=== PATIENT | female | born 1995 | race Caucasian/White ===

== ENCOUNTER 2019-02-18 09:44 | Inpatient (IN) | payer OTHER ==
[2019-02-18] VITALS (14 sets, daily range): BP systolic 112–133; BP diastolic 58–79; PULSE 88–107; RESP 12–21; Ht 157.5 cm; Wt 52.7 kg
[~2019-02-18] VITALS: Ht 157.5 cm; Wt 52.7 kg
[~2019-02-18 09:44] MED LIST: CEFAZOLIN 1 GM INJ ONE; DESFLURANE 15 MIN ONE; LIDOCAINE 2% (SDV) 5 ML INJ ONE
[2019-02-18] MEDS ORDERED: HYDROmorphONE 0.5 MG/0.5 ML SYG IV STA (10:58)
[2019-02-18] MEDS ORDERED: ONDANSETRON 4 MG INJ IV STA ×3 (11:02→14:29)
[2019-02-18] MEDS ORDERED: ONDANSETRON 4 MG INJ ONE ×2 (11:03→17:37)
[2019-02-18] MEDS ORDERED: SOD CHLORIDE 0.9% 1,000 ML IV ONE (11:30)
[2019-02-18] MEDS ORDERED: SOD CHLORIDE 0.9% 1,000 ML IV STA (12:16)
[2019-02-18] MEDS ORDERED: PIPER-TAZO 3.375 GM IV (PMX) 100 ML IVPB STA (12:38)
[2019-02-18] MEDS ORDERED: HYDROmorphONE 1 MG/ML SYG IV STA ×2 (12:38→14:29)
[2019-02-18] MEDS ORDERED: SUMA100T4 PO (13:43)
[2019-02-18] MEDS ORDERED: ACETAMINOPHEN 325 MG TAB PO PRN (14:30)
[2019-02-18] MEDS ORDERED: ONDANSETRON 4 MG INJ IV PRN ×2 (14:30→17:30)
[2019-02-18] MEDS ORDERED: MAGNESIUM HYDROXIDE 30ML CUP PO PRN (14:30)
[2019-02-18] MEDS ORDERED: ACETAMINOPHEN 650 MG SUPP PR PRN (14:30)
[2019-02-18] MEDS ORDERED: NA PHOSPHATE/BIPHOS 133 ML ENEMA PR PRN (14:30)
[2019-02-18] MEDS ORDERED: morphine 2 MG INJ IV PRN (14:30)
[2019-02-18] MEDS ORDERED: OXYCODONE/ACETAMINOPHEN (5/325) TAB PO PRN (14:30)
[2019-02-18] MEDS ORDERED: DOCUSATE SODIUM 100 MG CAP PO PRN (14:30)
[2019-02-18] MEDS ORDERED: BISACODYL 10 MG SUPP PR PRN (14:30)
[2019-02-18] MEDS ORDERED: NACL 0.9% 3 ML SYG IV SCH (14:30)
[2019-02-18] MEDS ORDERED: ZOLPIDEM 5 MG TAB PO PRN (14:30)
--- NOTE | 2019-02-18 15:07 | CONS ---
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 On February 14, she was on a hike. A large [place]any[place] tree fell over onto her left hand, crushing her left index finger between the tree and possibly a rock. She also sustained a laceration in the palmar aspect of her hand. She was able to hike out to the car and was taken by personal vehicle to a local hospital in [facility]. Dr. Rizvi treated her during her hospital stay. He took her for irrigation debridement on February 14. She was told that there was extensive damage to the index finger in addition to soft tissue injury of the palm involving her middle and ring finger. He took her back to the operating room on February 16 for repeat I&D and external fixator placement. She has been on IV antibiotics. She flew back from [facility] last night to [place]. She presents the ER today due to severe pain in the left hand. She also states that the finger has become more discolored since yesterday. Patient was scheduled to see me in my office for initial consultation on February 20. She has been in severe pain since being in the emergency room. She has been receiving IV Dilaudid. She denies fevers or fevers or chills. She denies any numbness or tingling. She still has some sensation in the index finger and is able to wiggle the tip of the index finger. She denies any numbness or tingling in the long, ring, small finger, or thumb. Constitutional: no complaints Eyes: no complaints ENT: no complaints Respiratory: no complaints Cardiovascular: no complaints Gastrointestinal: no complaints Genitourinary: no complaints Musculoskeletal: other Skin: other Neurologic: no complaints Endocrine: no complaints Lymphatic: no complaints Psychological: no complaints Immunologic: no complaints Past Medical History Home Meds Reported Medications Sumatriptan Succinate* (Sumatriptan Succinate*) 100 Mg Tablet, 100 MG PO DAILY PRN for MIGRAINE HEADACHE, TAB May repeat after 2 hours if needed; MAX 200 mg/24 hours 02/18/19 Medications Current Medications Sodium Chloride 1,000 ml @ 100 mls/hr Q10H IV ; Start 02/18/19 at 14:20 IV Flush (NS 3 ml) 3 ml PER PROTOCOL IV ; Start 02/18/19 at 14:30 Ondansetron HCl (Zofran Inj) 4 mg Q6H PRN IV NAUSEA/VOMITING; Start 02/18/19 at 14:30 Acetaminophen (Tylenol Tab) 650 mg Q6H PRN PO .PAIN 1-3 OR TEMP; Start 02/18/19 at 14:30 Acetaminophen (Tylenol Supp) 650 mg Q6H PRN [place] .PAIN 1-3 OR TEMP; Start 02/18/19 at 14:30 Oxycodone/ Acetaminophen (Percocet (5/ 325)) 1 tab Q6H PRN PO .MOD PAIN 4-6; Start 02/18/19 at 14:30 Morphine Sulfate (morphine) 2 mg Q4H PRN IV .SEVERE PAIN 7-10; Start 02/18/19 at 14:30 Docusate Sodium (Colace) 100 mg Q12H PRN PO .CONSTIPATION; Start 02/18/19 at 14:30 Magnesium Hydroxide (Milk Of Mag) 30 ml DAILY PRN PO .CONSTIPATION; Start 02/18/19 at 14:30 Bisacodyl (Dulcolax Supp) 10 mg DAILY PRN OK .CONSTIPATION; Start 02/18/19 at 14:30 Sodium Biphosphate/ Sodium Phosphate (Fleet Enema) 133 ml DAILY PRN OK .CONSTIPATION; Start 02/18/19 at 14:30 Zolpidem Tartrate (Ambien) 5 mg QHS PRN PO .INSOMNIA; Start 02/18/19 at 14:30 Famotidine (Pepcid Iv) 20 mg Q12 IV ; Start 02/18/19 at 21:00 Allergies: Coded Allergies: No Known Allergy (Unverified , 02/18/19) Social History Smoking Status: Never smoker Exam/Review of Systems Exam Vitals Vital Signs Date Temp Pulse Resp B/P (MAP) Pulse Ox O2 O2 Flow FiO2 Time Delivery Rate 02/18/19 83 18 122/74 98 Room Air 13:13 (90) 02/18/19 98.3 09:48 Results Result Diagram: 02/18/19 1104 02/18/19 1104 Results 24hrs Laboratory Tests Test 02/18/19 11:04 02/18/19 11:07 White Blood Count 9.7 Red Blood Count 4.55 Hemoglobin 13.7 Hematocrit 41.6 Mean Corpuscular Volume 91.4 Mean Corpuscular Hemoglobin 30.1 Mean Corpuscular Hemoglobin Concent 32.9 Red Cell Distribution Width 11.8 Platelet Count 324 Mean Platelet Volume 9.2 Immature Granulocytes % 0.400 Neutrophils % 63.0 Lymphocytes % 24.3 Monocytes % 10.3 Eosinophils % 1.5 Basophils % 0.5 Nucleated Red Blood Cells % 0.0 Immature Granulocytes # 0.040 H Neutrophils # 6.1 Lymphocytes # 2.4 Monocytes # 1.0 H Eosinophils # 0.2 Basophils # 0.1 Nucleated Red Blood Cells # 0.0 Prothrombin Time 11.8 L Prothrombin Time Ratio 0.9 INR International Normalized Ratio 0.86 Activated Partial Thromboplast Time 29.1 Sodium Level 140 Potassium Level 3.7 Chloride Level 100 Carbon Dioxide Level 32 H Anion Gap 8 Blood Urea Nitrogen 10 Creatinine 0.67 Est Glomerular Filtrat Rate mL/min > 60 Glucose Level 95 Calcium Level 9.5 Total Bilirubin 0.6 Direct Bilirubin 0.00 Indirect Bilirubin 0.6 Aspartate Amino Transf (AST/SGOT) 19 Alanine Aminotransferase (ALT/SGPT) 9 L Alkaline Phosphatase 40 L Total Protein 7.7 Albumin 4.1 Globulin 3.60 H Albumin/Globulin Ratio 1.13 Serum HCG, Qualitative NEGATIVE POC Beta HCG, Qualitative NEGATIVE Medications Medication Current Medications Sodium Chloride 1,000 ml @ 100 mls/hr Q10H IV ; Start 02/18/19 at 14:20 IV Flush (NS 3 ml) 3 ml PER PROTOCOL IV ; Start 02/18/19 at 14:30 Ondansetron HCl (Zofran Inj) 4 mg Q6H PRN IV NAUSEA/VOMITING; Start 02/18/19 at 14:30 Acetaminophen (Tylenol Tab) 650 mg Q6H PRN PO .PAIN 1-3 OR TEMP; Start 02/18/19 at 14:30 Acetaminophen (Tylenol Supp) 650 mg Q6H PRN OK .PAIN 1-3 OR TEMP; Start 02/18/19 at 14:30 Oxycodone/ Acetaminophen (Percocet (5/ 325)) 1 tab Q6H PRN PO .MOD PAIN 4-6; Start 02/18/19 at 14:30 Morphine Sulfate (morphine) 2 mg Q4H PRN IV .SEVERE PAIN 7-10; Start 02/18/19 at 14:30 Docusate Sodium (Colace) 100 mg Q12H PRN PO .CONSTIPATION; Start 02/18/19 at 14:30 Magnesium Hydroxide (Milk Of Mag) 30 ml DAILY PRN PO .CONSTIPATION; Start 02/18/19 at 14:30 Bisacodyl (Dulcolax Supp) 10 mg DAILY PRN OK .CONSTIPATION; Start 02/18/19 at 14:30 Sodium Biphosphate/ Sodium Phosphate (Fleet Enema) 133 ml DAILY PRN OK .CONSTIPATION; Start 02/18/19 at 14:30 Zolpidem Tartrate (Ambien) 5 mg QHS PRN PO .INSOMNIA; Start 02/18/19 at 14:30 Famotidine (Pepcid Iv) 20 mg Q12 IV ; Start 02/18/19 at 21:00 SOL KELSEY MD Feb 18, 2019 15:07
--- NOTE | 2019-02-18 15:49 | HP ---
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 On February 14, she was on a hike. A large [place] tree fell over onto her left hand, crushing her left index finger between the tree and possibly a rock. She also sustained a laceration in the palmar aspect of her hand. She was able to hike out to the car and was taken by personal vehicle to a local hospital in [facility]. Dr. Rizvi treated her during her hospital stay. He took her for irrigation debridement on February 14. She was told that there was extensive damage to the index finger in addition to soft tissue injury of the palm involving her middle and ring finger. He took her back to the operating room on , February 16 for repeat I&D and external fixator placement. She has been on IV antibiotics. She flew back from [facility] last night to [place]. She presents the ER today due to severe pain in the left hand. She also states that the finger has become more discolored since yesterday. Patient was scheduled to see me in my office for initial consu ltation on Wednesday, February 20. She has been in severe pain since being in the emergency room. She has been receiving IV Dilaudid. She denies fevers or fevers or chills. She denies any numbness or tingling. She still has some sensation in the index finger and is able to wiggle the tip of the index finger. She denies any numbness or tingling in the long, ring, small finger, or thumb. -Incomplete data. Patient in OR ER: vss; test negative Past medical history Left hand crush injury Past surgical history Left index finger external fixation in [facility] last week Social history no active tobacco or alcohol; Family history There is no fh of early cad, cancer, stroke that I am aware of Physical exam No pallor Regular Clear Benign No peripheral edema; left hand pictures noted Assessment plan 1. Left index finger gangrene, mod stable. unfortunately, for amputation later today Low perioperative risk may proceed forward from medical standpoint. 2. Left hand crush injury continue supportive care, watch for rhabdo. Outpatient wound care, OT at some point 3. Incomplete data Result Diagram: 02/18/19 1104 02/18/19 1104 Results 24hrs Laboratory Tests Test 02/18/19 11:04 02/18/19 11:07 White Blood Count 9.7 Red Blood Count 4.55 Hemoglobin 13.7 Hematocrit 41.6 Mean Corpuscular Volume 91.4 Mean Corpuscular Hemoglobin 30.1 Mean Corpuscular Hemoglobin Concent 32.9 Red Cell Distribution Width 11.8 Platelet Count 324 Mean Platelet Volume 9.2 Immature Granulocytes % 0.400 Neutrophils % 63.0 Lymphocytes % 24.3 Monocytes % 10.3 Eosinophils % 1.5 Basophils % 0.5 Nucleated Red Blood Cells % 0.0 Immature Granulocytes # 0.040 H Neutrophils # 6.1 Lymphocytes # 2.4 Monocytes # 1.0 H Eosinophils # 0.2 Basophils # 0.1 Nucleated Red Blood Cells # 0.0 Prothrombin Time 11.8 L Prothrombin Time Ratio 0.9 INR International Normalized Ratio 0.86 Activated Partial Thromboplast Time 29.1 Sodium Level 140 Potassium Level 3.7 Chloride Level 100 Carbon Dioxide Level 32 H Anion Gap 8 Blood Urea Nitrogen 10 Creatinine 0.67 Est Glomerular Filtrat Rate mL/min > 60 Glucose Level 95 Calcium Level 9.5 Total Bilirubin 0.6 Direct Bilirubin 0.00 Indirect Bilirubin 0.6 Aspartate Amino Transf (AST/SGOT) 19 Alanine Aminotransferase (ALT/SGPT) 9 L Alkaline Phosphatase 40 L Total Protein 7.7 Albumin 4.1 Globulin 3.60 H Albumin/Globulin Ratio 1.13 Serum HCG, Qualitative NEGATIVE POC Beta HCG, Qualitative NEGATIVE HPI/ROS Admit Date/Time Admit Date/Time PMH/Family/Social Past Medical History Medications Current Medications Sodium Chloride 1,000 ml @ 100 mls/hr Q10H IV ; Start 02/18/19 at 14:20 IV Flush (NS 3 ml) 3 ml PER PROTOCOL IV ; Start 02/18/19 at 14:30 Ondansetron HCl (Zofran Inj) 4 mg Q6H PRN IV NAUSEA/VOMITING; Start 02/18/19 at 14:30 Acetaminophen (Tylenol Tab) 650 mg Q6H PRN PO .PAIN 1-3 OR TEMP; Start 02/18/19 at 14:30 Acetaminophen (Tylenol Supp) 650 mg Q6H PRN [place] .PAIN 1-3 OR TEMP; Start 02/18/19 at 14:30 Oxycodone/ Acetaminophen (Percocet (5/ 325)) 1 tab Q6H PRN PO .MOD PAIN 4-6; Start 02/18/19 at 14:30 Morphine Sulfate (morphine) 2 mg Q4H PRN IV .SEVERE PAIN 7-10; Start 02/18/19 at 14:30 Docusate Sodium (Colace) 100 mg Q12H PRN PO .CONSTIPATION; Start 02/18/19 at 14:30 Magnesium Hydroxide (Milk Of Mag) 30 ml DAILY PRN PO .CONSTIPATION; Start 02/18/19 at 14:30 Bisacodyl (Dulcolax Supp) 10 mg DAILY PRN HI .CONSTIPATION; Start 02/18/19 at 14:30 Sodium Biphosphate/ Sodium Phosphate (Fleet Enema) 133 ml DAILY PRN HI .CONSTIPATION; Start 02/18/19 at 14:30 Zolpidem Tartrate (Ambien) 5 mg QHS PRN PO .INSOMNIA; Start 02/18/19 at 14:30 Famotidine (Pepcid Iv) 20 mg Q12 IV ; Start 02/18/19 at 21:00 Coded Allergies: No Known Allergy (Unverified , 02/18/19) Social History Smoking Status: Never smoker Exam/Review of Systems Vital Signs Vitals Vital Signs Date Temp Pulse Resp B/P (MAP) Pulse Ox O2 O2 Flow FiO2 Time Delivery Rate 02/18/19 87 16 117/69 98 Room Air 15:10 (85) 02/18/19 98.3 09:48 CATHY OWEN MD Feb 18, 2019 15:49
--- NOTE | 2019-02-18 17:04 | PREAC ---
Date/Time of Note Date/Time of Note DATE: 02/18/19 TIME: 17:03 Anesthesia Eval and Record Evaluation Time Pre-Procedure Interview DATE: 02/18/19 TIME: 17:03 Age 24 Sex female NPO: 8 hrs Preoperative diagnosis ischemic finger Planned procedure amputation of index finger Past Medical History Past Medical History: None Surgery & Anesthesia Issues No known issue Meds Anticoagulation: No Beta Sandi within 24 hr: No Reason Beta Sandi not given: Pt. not on B-Sandi Reported Medications Sumatriptan Succinate* (Sumatriptan Succinate*) 100 Mg Tablet, 100 MG PO DAILY PRN for MIGRAINE HEADACHE, TAB May repeat after 2 hours if needed; MAX 200 mg/24 hours 02/18/19 Current Medications Sodium Chloride 1,000 ml @ 100 mls/hr Q10H IV ; Start 02/18/19 at 14:20 IV Flush (NS 3 ml) 3 ml PER PROTOCOL IV ; Start 02/18/19 at 14:30 Ondansetron HCl (Zofran Inj) 4 mg Q6H PRN IV NAUSEA/VOMITING; Start 02/18/19 at 14:30 Acetaminophen (Tylenol Tab) 650 mg Q6H PRN PO .PAIN 1-3 OR TEMP; Start 02/18/19 at 14:30 Acetaminophen (Tylenol Supp) 650 mg Q6H PRN [place] .PAIN 1-3 OR TEMP; Start 02/18/19 at 14:30 Oxycodone/ Acetaminophen (Percocet (5/ 325)) 1 tab Q6H PRN PO .MOD PAIN 4-6; Start 02/18/19 at 14:30 Morphine Sulfate (morphine) 2 mg Q4H PRN IV .SEVERE PAIN 7-10; Start 02/18/19 at 14:30 Docusate Sodium (Colace) 100 mg Q12H PRN PO .CONSTIPATION; Start 02/18/19 at 14:30 Magnesium Hydroxide (Milk Of Mag) 30 ml DAILY PRN PO .CONSTIPATION; Start 02/18/19 at 14:30 Bisacodyl (Dulcolax Supp) 10 mg DAILY PRN NE .CONSTIPATION; Start 02/18/19 at 14:30 Sodium Biphosphate/ Sodium Phosphate (Fleet Enema) 133 ml DAILY PRN NE .CONSTIPATION; Start 02/18/19 at 14:30 Zolpidem Tartrate (Ambien) 5 mg QHS PRN PO .INSOMNIA; Start 02/18/19 at 14:30 Famotidine (Pepcid Iv) 20 mg Q12 IV ; Start 02/18/19 at 21:00 Meds reviewed: Yes Allergies Coded Allergies: No Known Allergy (Unverified , 02/18/19) Allergies Reviewed: Yes Labs/Studies Labs Reviewed: Reviewed by anesthesiologist Result Diagram: 02/18/19 1104 02/18/19 1104 Laboratory Tests 02/18/19 11:04 Blood Bank Test 02/18/19 15:44 Antibody Screen NEGATIVE Blood Type A POSITIVE test: Negative Pre-procedure Exam Last vitals Vital Signs Date Temp Pulse Resp B/P (MAP) Pulse Ox O2 O2 Flow FiO2 Time Delivery Rate 02/18/19 80 16 120/69 98 Room Air 15:50 (86) 02/18/19 98.3 09:48 Airway: Adequate mouth opening, Adequate thyromental dist Mallampati: Mallampati IV Teeth: Normal Lung: Normal Heart: Normal ASA Physical Status ASA physical status: 2 Emergency: None Pre-operative Attestations Prior to commencing anesthesia and surgery, the patient was re-evaluated, there was verification of: *The patient's identity *The results of appropriate recent lab work and preoperative vital signs *The above evaluation not changing prior to induction *Anesthetic plan, risk benefits, alternative and complications discussed with patient/family; questions answered; patient/family understands, accepts and wishes to proceed. YESSI MCDONOUGH DO Feb 18, 2019 17:04
[2019-02-18] MEDS ORDERED: ROCURONIUM 50 MG INJ ONE (17:10)
[2019-02-18] MEDS ORDERED: MIDAZOLAM 1 MG/ML 2 ML INJ ONE (17:11)
[2019-02-18] MEDS ORDERED: PROPOFOL 20 ML ONE (17:11)
[2019-02-18] MEDS ORDERED: FENTAnyl 50 MCG/ML VIAL ONE (17:11)
[2019-02-18] MEDS ORDERED: DEXAMETHASONE 4 MG/ML 5 ML INJ ONE (17:15)
[2019-02-18] MEDS ORDERED: ROPIVACAINE 0.5 % 30 ML VIAL ONE (17:15)
[2019-02-18] MEDS ORDERED: HYDROmorphONE 1 MG/5 ML IV SYRINGE IV PRN ×3 (17:30)
[2019-02-18] MEDS ORDERED: POLYMYXIN/BACITRACIN 1L IRRIG IRR ONE ×2 (18:21)
--- NOTE | 2019-02-18 18:47 | SIPON ---
Date/Time of Note Date/Time of Note DATE: 02/18/19 TIME: 18:46 Operative Report Preoperative Diagnosis Left index finger crush injury and left hand laceration Postoperative Diagnosis Left index finger gangrene and left hand laceration Operation/Procedure Performed Left index ray amputation and irrigation and debridement left hand Surgeon see signature line research assistant professor None Anesthesia: general Estimated blood loss: minimal Transfusion Required none Specimen Index finger Grafts/Implants none Complications none SOL KELSEY MD Feb 18, 2019 18:47
[2019-02-18] MEDS ORDERED: SUGAMMADEX SODIUM 200 MG/2 ML VIAL IV ONE (18:54)
--- NOTE | 2019-02-18 19:05 | OPR ---
Date/Time of Note Date/Time of Note DATE: 02/18/19 TIME: 18:48 Operative Report Preoperative Diagnosis Left index finger crush injury, left hand laceration Postoperative Diagnosis Left index finger gangrene, left hand laceration Operation/Procedure Performed Left index ray amputation, and irrigation of left hand including skin subcutaneous tissue muscle and bone Surgeon Sol Helms Drilling Field Specialist None Anesthesia Type: general Tourniquet Time: 18 minutes Estimated Blood Loss: minimal Transfusion none Specimen Index finger Grafts/Implants none Tubes/Drains None Complications none Pt Condition Post Procedure: stable Indications 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 A large [place] tree fell onto her left hand. Date of injury was February 14. She was treated locally in [facility]. She underwent irrigation and debridement of the left hand on February 14 and February 16. She underwent external fixation placement on February 16. She returned from [facility] last night. This morning, she was noted to have increasing pain in the left index finger in addition to coloration of the fingertip. She presented to the ER this morning. She was found to have a dysvascular left index finger which was cold, and black and purple in color. She also had a complex laceration of the over the palmar aspect of her hand. She had intact neurovascular exam in the long, ring, small finger, and thumb. We discussed doing a index finger amputation. Patient wanted to preserve as much length as possible. Length of amputation would be determined intraoperatively. We discussed that ray amputation is the most common level of amputation. We also discussed needing possible grafting. We discussed risks of surgery which include but are not limited to those infection, pain, bleeding, neurovascular injury, stiffness, swelling, decreased range of motion, decreased strength, more surgery, and other anesthesia related risks, cardiopulmonary complications, thromboembolic phenomenon. She elected to proceed Procedure Description Patient was identified in preoperative holding area. Upper extremities marked patient she is brought back to operating room. She is placed supine and general endotracheal anesthesia was induced. An axillary block was performed by anesthesia. A nonsterile tourniquet was applied to left arm. The left hand was inspected. There was a malodor coming from the index finger due to the gangrene. The left index finger was necrotic and nonviable. The other digits were well perfused. The body of the external fixator was first removed. The left hand was then prepped and draped in usual sterile fashion. Timeout was performed indicating correct patient site and procedure. The K wires were first removed with a wire national van truck driver. New gloves were donned. The wound was first irrigated with bacitracin impregnated normal saline. There was no gross debris noted. I then proceeded with the amputation. Patient wanted me to preserve as much length as possible. However the soft tissue injury and nonviable tissue extended to the level of the metacarpal head. Fluoroscopy was utilized to first visualize the fracture. There is a fracture involving the base of the proximal phalanx. The finger was first amputated at the fracture site. The decision was made to proceed with index ray amputation based on the level of soft tissue injury. She had a complex laceration on the palmar aspect of the hand extending to the long and ring finger metacarpal head. Longitudinal incision was made over the index metacarpal shaft to the base. Skin was incised sharply clear. Blunt dissection was performed down to the bone. Periosteal elevation was performed using a deep knife and the bone was exposed. Marcie retractors were utilized to expose the bone. The level of the amputation was first visualized on fluoroscopy and noted to be distal to the ECRL insertion. A sagittal saw was utilized to complete the osteotomy in oblique fashion. Fluoroscopy was utilized to take an image of the completed amputation. A rasp was utilized to soften up the edges. The remainder of the metacarpal shaft was then elevated sharply from the surrounding muscle attachments and the amputation was completed. The specimen was sent off for pathology. The neurovascular bundles were then dissected out. The digital nerves were cut sharply and allowed to retract into the wound. Tourniquet was released. The ulnar digital artery was bleeding. A 2-0 silk tie was utilized to ligate this artery. The wound was then copiously irrigated with bulb irrigation and bacitracin impregnated normal saline. It was no residual gross contamination noted. Wound was overall clean. The flexor tendon sheath along to the long finger was not violated. She had an intact radial digital neurovascular bundle to the long finger. I then began to close the wound with 4-0 nylon suture. The wound actually came together very nicely without tension. Dorsal incision was closed primarily. Glabrous skin that was left behind from the index finger was raised to cover the radial border of the long finger metacarpal head. The palmar laceration was repaired back primarily as well. There is brisk capillary refill in all the fingers at the end of the case. Xeroform was applied followed by fluffs and a sterile dressing. All sponge minutes counts correct in the case. She was extubated and taken to PACU stable condition. Plan: The patient may discharge tomorrow if pain is under control. SOL HELMS MD Feb 18, 2019 19:05
[2019-02-18] MEDS ORDERED: MEPERIDINE 25 MG INJ ONE (19:07)
--- NOTE | 2019-02-18 19:08 | PAC ---
Date/Time of Note Date/Time of Note DATE: 02/18/19 TIME: 19:07 Post-Anesthesia Notes Post-Anesthesia Note Last documented vital signs Vital Signs Date Temp Pulse Resp B/P (MAP) Pulse Ox O2 O2 Flow FiO2 Time Delivery Rate 02/18/19 98.9 90 20 105/60 100 19:06 02/18/19 80 16 120/69 98 Room Air 15:50 (86) Activity: WNL Respiratory function: WNL Cardiovascular function: WNL Mental status: Baseline Pain reasonably controlled: Yes Hydration appropriate: Yes Nausea/Vomiting absent: Yes YESSI MCDONOUGH DO Feb 18, 2019 19:08
[2019-02-18] MEDS ORDERED: MEPERIDINE 25 MG INJ IV PRN (19:30)
[2019-02-18] MEDS: SOD CHLORIDE 0.9% 1,000 ML IV SCH (20:39)
[2019-02-18] MEDS: FAMOTIDINE 20 MG INJ IV SCH (20:40)
[2019-02-19] MEDS: SOD CHLORIDE 0.9% 1,000 ML IV SCH ×2 (00:20→07:30)
[2019-02-19 08:20] VITALS: BP 109/56; PULSE 58; RESP 18
--- NOTE | 2019-02-19 08:25 | PN ---
Date/Time of Note Date/Time of Note DATE: 02/19/19 TIME: 08:23 Assessment/Plan Lines/Catheters IV Catheter Type (from Nrs): Peripheral IV Assessment/Plan Assessment/Plan POD#1 s/p left index ray amputation and I&D left hand May discharge home today. Prescription for Percocet and Dilaudid written and given to patient. Keep left hand elevated at all times. Discussed finger exercises when the block wears off. Follow-up in my office on Wednesday. Subjective 24 Hr Interval Summary Patient is doing well. The finger and arm is still numb. Exam/Review of Systems Vital Signs Vitals Vital Signs Date Temp Pulse Resp B/P (MAP) Pulse Ox O2 O2 Flow FiO2 Time Delivery Rate 02/18/19 98.8 94 18 118/60 92 20:15 (79) 02/18/19 Room Air 20:02 02/18/19 6.0 19:07 Intake and Output 02/18/19 02/18/19 02/19/19 1515:00 23:00 07:00 IntakeIntake Total 3200 ml 1090 ml OutputOutput Total 20 ml BalanceBalance 3180 ml 1090 ml Exam Free Text/Dictation Left hand is in gauze and SUE bandage. There is moderate swelling in the ring and long fingers. She can flex and fingers and thumb and weakly extend. The hand is still numb to palpation. No drainage through the dressing. Results Result Diagram: 02/19/19 0433 02/19/19 0433 SOL KELSEY MD Feb 19, 2019 08:25
[2019-02-19] MEDS: FAMOTIDINE 20 MG INJ IV SCH (09:00)
[2019-02-19] MEDS ORDERED: CEPH500C PO (09:46)
--- NOTE | 2019-02-19 10:42 | DS ---
Date/Time of Note Date/Time of Note DATE: 02/19/19 TIME: 10:42 Discharge Summary Admission/Discharge Info Admit Date/Time Feb 18, 2019 at 14:27 Discharge Date/Time Hospital Course Patient is a young female with no significant past medical history who presented to [facility] for urgent finger amputation. Patient received left index ray amputation and irrigation of the left hand including skin subcutaneous tissue muscle and bone by hand surgeon. Patient doing well, surgeons stated that patient is not in need of any more antibiotics and has an appointment to see surgeon in 2 days. Patient given strict instructions by surgeon and pain medication by surgeon as well. Patient to be discharged today, instructions were given to the patient to return to the ED if symptoms worsen. Discharge diagnosis Left index ray crush injury, gangrene, status post amputation Home Meds Reported Medications Sumatriptan Succinate* (Sumatriptan Succinate*) 100 Mg Tablet, 100 MG PO DAILY PRN for MIGRAINE HEADACHE, TAB May repeat after 2 hours if needed; MAX 200 mg/24 hours 02/18/19 Discontinued Reported Medications Cephalexin* (Cephalexin*) 500 Mg Capsule, 500 MG PO Q6, #10 CAP 02/19/19 Primary Care Provider Not On Staff Doctor Time spent on discharge: > 30 minutes Pending Labs Laboratory Tests Test 02/18/19 11:04 02/18/19 11:07 02/19/19 04:33 White Blood Count 9.7 7.5 10^3/ul (4.8-10.8) 10^3/ul (4.8-10.8) Red Blood Count 4.55 3.80 10^6/ul (4.20-5.40) 10^6/ul (4.20-5.40 ) Hemoglobin 13.7 11.6 g/dl (12.0-16.0) g/dl (12.0-16.0) Hematocrit 41.6 % (37.0-47.0) 33.7 % (37.0-47.0) Mean Corpuscular 91.4 88.7 Volume fl (82.0-101.0) fl (82.0-101.0) Mean Corpuscular 30.1 pg (29.0-33.0) 30.5 Hemoglobin pg (29.0-33.0) Mean Corpuscular 32.9 34.4 Hemoglobin Concent g/dl (32.0-37.0) g/dl (32.0-37.0) Red Cell 11.8 % (11.5-14.5) 11.3 % (11.5-14.5) Distribution Width Platelet Count 324 274 10^3/UL (140-415) 10^3/UL (140-415) Mean Platelet 9.2 fl (7.4-10.4) 8.7 fl (7.4-10.4) Volume Immature 0.400 0.400 Granulocytes % % (0.001-0.429) % (0.001-0.429) Neutrophils % 63.0 % (39.0-77.0) 88.8 % (39.0-77.0) Lymphocytes % 24.3 % (15.0-51.0) 7.2 % (15.0-51.0) Monocytes % 10.3 % (0.0-11.0) 3.5 % (0.0-11.0) Eosinophils % 1.5 % (0.0-7.0) 0.0 % (0.0-7.0) Basophils % 0.5 % (0.0-2.0) 0.1 % (0.0-2.0) Nucleated Red Blood 0.0 0.0 Cells % /100WBC (0.0-0.0) /100WBC (0.0-0.0) Immature 0.040 0.030 Granulocytes # 10^3/ul (0.0-0.031) 10^3/ul (0.0-0.031 ) Neutrophils # 6.1 6.7 10^3/ul (1.6-7.5) 10^3/ul (1.6-7.5) Lymphocytes # 2.4 0.5 10^3/ul (0.8-2.9) 10^3/ul (0.8-2.9) Monocytes # 1.0 0.3 10^3/ul (0.3-0.9) 10^3/ul (0.3-0.9) Eosinophils # 0.2 0.0 10^3/ul (0.0-0.5) 10^3/ul (0.0-0.5) Basophils # 0.1 0.0 10^3/ul (0.0-0.1) 10^3/ul (0.0-0.1) Nucleated Red Blood 0.0 0.0 Cells # 10^3/ul (0.0-0.0) 10^3/ul (0.0-0.0) Prothrombin Time 11.8 Sec (11.9-14.9) Prothrombin Time 0.9 Ratio INR International 0.86 Normalized Ratio Activated 29.1 Partial Thromboplas Sec (23.0-35.0) t Time Sodium Level 140 139 mmol/L (135-144) mmol/L (135-144) Potassium Level 3.7 4.1 mmol/L (3.5-5.1) mmol/L (3.5-5.1) Chloride Level 100 mmol/L (97-110) 103 mmol/L (97-110) Carbon Dioxide 32 mmol/L (21-31) 27 mmol/L (21-31) Level Anion Gap 8 (5-13) 9 (5-13) Blood Urea 10 mg/dl (7-20) 8 mg/dl (7-20) Nitrogen Creatinine 0.67 0.56 mg/dl (0.44-1.00) mg/dl (0.44-1.00) Est Glomerular > 60 mL/min (>60) > 60 mL/min (>60) Filtrat Rate mL/min Glucose Level 95 mg/dl (70-220) 140 mg/dl (70-220) Calcium Level 9.5 9.0 mg/dl (8.4-10.2) mg/dl (8.4-10.2) Total Bilirubin 0.6 mg/dl (0.2-1.3) 0.4 mg/dl (0.2-1.3) Direct Bilirubin 0.00 0.00 mg/dl (0.00-0.20) mg/dl (0.00-0.20) Indirect Bilirubin 0.6 mg/dl (0-1.1) 0.4 mg/dl (0-1.1) Aspartate Amino 19 IU/L (15-46) 25 IU/L (15-46) Transf (AST/SGOT) Alanine 9 IU/L (13-69) 29 IU/L (13-69) Aminotransferase (A LT/SGPT) Alkaline 40 IU/L (42-121) 41 IU/L (42-121) Phosphatase Total Protein 7.7 g/dl (6.1-8.1) 6.4 g/dl (6.1-8.1) Albumin 4.1 g/dl (3.3-4.9) 3.4 g/dl (3.3-4.9) Globulin 3.60 g/dl (1.3-3.2) 3.00 g/dl (1.3-3.2) Albumin/Globulin 1.13 1.13 Ratio Serum HCG, NEGATIVE (NEGATIVE) Qualitative POC Beta HCG, NEGATIVE (NEGATIVE Qualitative ) Hemoglobin A1c 4.9 % (0-5.9) Magnesium Level 1.7 mg/dl (1.7-2.5) Thyroid Stimulating 0.311 Hormone (TSH) MIU/L (0.465-4.680 ) NERI SHUKLA Feb 19, 2019 10:42
--- NOTE | 2019-02-19 19:55 | ERD ---
ER Documentation Chief Complaint Chief Complaint pt aspen family for left index finger check, got hurt in [place] HPI This is a very pleasant 24-year-old female presents to the emergency department after returning from a trip to [facility] with an injury to her left hand. The patient has been walking on a path climbing a tree while visiting her boyfriend and now a 1 subsequently the tree fell over and landed onto her left hand. She had a crush injury and was seen at a [facility]. She underwent surgical intervention with debridements and K wiring. Injury occurred 5 days prior to arrival. The patient was sent home via plane to [place] for further evaluation. She has contacted the hand surgeon Dr. Helms she is scheduled to see him in 48 hours. The patient is currently taking Keflex. However she came to the emergency department today she states the pain is 10 out of 10 in intensity. She had no fevers or shaking or chills. She denies any numbness or tingling of her left arm. ROS All systems reviewed and are negative except as per history of present illness. Medications Home Meds Reported Medications Sumatriptan Succinate* (Sumatriptan Succinate*) 100 Mg Tablet, 100 MG PO DAILY PRN for MIGRAINE HEADACHE, TAB May repeat after 2 hours if needed; MAX 200 mg/24 hours 02/18/19 Discontinued Reported Medications Cephalexin* (Cephalexin*) 500 Mg Capsule, 500 MG PO Q6, #10 CAP 02/19/19 Allergies Allergies: Coded Allergies: No Known Allergy (Unverified , 02/18/19) PMhx/Soc History of Surgery: No Anesthesia Reaction: No Hx Neurological Disorder: No Hx Respiratory Disorders: No Hx Cardiac Disorders: No Hx Psychiatric Problems: No Hx Miscellaneous Medical Probl: No Hx Alcohol Use: No Hx Substance Use: No Hx Tobacco Use: No Smoking Status: Never smoker Physical Exam Vitals Vital Signs Date Temp Pulse Resp B/P (MAP) Pulse Ox O2 O2 Flow FiO2 Time Delivery Rate 02/18/19 83 18 122/74 98 Room Air 13:13 (90) 02/18/19 98.3 78 18 109/61 96 09:48 (77) Physical Exam Constitutional:Well-developed. Well-nourished. HEENT:Normocephalic. Atraumatic.Pupils were equal round reactive to light. Moist mucous membranes.No tonsillar exudates. Neck: No nuchal rigidity. No lymphadenopathy. No posterior cervical spine tenderness or step-offs. Respiratory: Not using accessory muscles of respiration.Lungs were clear to auscultation bilaterally. No rhonchi. No rales. No wheezing. Cardiovascular: Regular rate regular rhythm.No murmurs. No rubs were appreciated.S1, S2 normal. Distal pulses are palpable 2+ bilaterally. GI: Abdomen was soft. Nontender. Non Distended. No pulsatile abdominal masses or bruits. No rebound. No guarding. Bowel sounds were present and normal. Muscle skeletal: Full range of motion of the right upper extremity. Patient had external hardware present with K wires placed internally but also externally supported over the left middle and proximal phalanx on the index finger and extending into the second distal metacarpal. Left index finger was necrotic with no pustular drainage. Surgical gauze present on the palmar aspect from previous debridement of the left hand. No fusiform swelling of the digits of the left hand. Significant tenderness over surgical site on the left hand with limited ability to test for range of motion due to external hardware. Radial nerve distribution disrupted on the index finger on the left. Skin: No petechia, no purpura. No lesions on the palms or the soles of the feet. No maculopapular rash. NEURO: Patient was alert, awake, orientated x3.No facial droop. Gait observed and normal with no ataxia.Speech had regular rate and rhythm. No focal neurological deficits. Result Diagram: 02/19/19 0433 02/19/19 0433 Results 24 hrs Laboratory Tests Test 02/18/19 11:04 02/18/19 11:07 White Blood Count 9.7 10^3/ul Red Blood Count 4.55 10^6/ul Hemoglobin 13.7 g/dl Hematocrit 41.6 % Mean Corpuscular Volume 91.4 fl Mean Corpuscular Hemoglobin 30.1 pg Mean Corpuscular Hemoglobin Concent 32.9 g/dl Red Cell Distribution Width 11.8 % Platelet Count 324 10^3/UL Mean Platelet Volume 9.2 fl Immature Granulocytes % 0.400 % Neutrophils % 63.0 % Lymphocytes % 24.3 % Monocytes % 10.3 % Eosinophils % 1.5 % Basophils % 0.5 % Nucleated Red Blood Cells % 0.0 /100WBC Immature Granulocytes # 0.040 10^3/ul Neutrophils # 6.1 10^3/ul Lymphocytes # 2.4 10^3/ul Monocytes # 1.0 10^3/ul Eosinophils # 0.2 10^3/ul Basophils # 0.1 10^3/ul Nucleated Red Blood Cells # 0.0 10^3/ul Prothrombin Time 11.8 Sec Prothrombin Time Ratio 0.9 INR International Normalized Ratio 0.86 Activated Partial Thromboplast Time 29.1 Sec Sodium Level 140 mmol/L Potassium Level 3.7 mmol/L Chloride Level 100 mmol/L Carbon Dioxide Level 32 mmol/L Anion Gap 8 Blood Urea Nitrogen 10 mg/dl Creatinine 0.67 mg/dl Est Glomerular Filtrat Rate mL/min > 60 mL/min Glucose Level 95 mg/dl Calcium Level 9.5 mg/dl Total Bilirubin 0.6 mg/dl Direct Bilirubin 0.00 mg/dl Indirect Bilirubin 0.6 mg/dl Aspartate Amino Transf (AST/SGOT) 19 IU/L Alanine Aminotransferase (ALT/SGPT) 9 IU/L Alkaline Phosphatase 40 IU/L Total Protein 7.7 g/dl Albumin 4.1 g/dl Globulin 3.60 g/dl Albumin/Globulin Ratio 1.13 Serum HCG, Qualitative NEGATIVE POC Beta HCG, Qualitative NEGATIVE Current Medications Medications Dose Sig/Minesh Start Time Status Last (Trade) Ordered Route PRN Stop Time Admin Dose Reason Admin 1 mg ONCE STAT 02/18/19 DC 02/18/19 Hydromorphone IV 10:58 11:14 HCl 02/18/19 11:00 (Dilaudid) Ondansetron 4 mg ONCE STAT 02/18/19 DC 02/18/19 HCl (Zofran IV 11:02 11:14 Inj) 02/18/19 11:03 Ondansetron 4 mg STK-MED 02/18/19 DC HCl (Zofran ONCE .ROUTE 11:03 Inj) 02/18/19 11:04 Sodium 1,000 ml @ Q1H ONCE 02/18/19 DC 02/18/19 Chloride 1,000 mls/hr IV 11:30 11:14 02/18/19 12:29 Sodium 1,000 ml @ Q1H STAT 02/18/19 DC 02/18/19 Chloride 1,000 mls/hr IV 12:16 13:04 02/18/19 13:15 1 mg ONCE STAT 02/18/19 DC 02/18/19 Hydromorphone IV 12:38 13:03 HCl 02/18/19 12:39 (Dilaudid) Ondansetron 4 mg ONCE STAT 02/18/19 DC 02/18/19 HCl (Zofran IV 12:38 13:03 Inj) 02/18/19 12:39 Piperacillin 100 ml @ ONCE STAT 02/18/19 DC 02/18/19 Sod/ 200 mls/hr IVPB 12:38 13:09 Tazobactam 02/18/19 13:07 Sod Sodium 1,000 ml @ Q10H IV 02/18/19 DC 02/19/19 Chloride 100 mls/hr 14:20 07:30 02/19/19 11:50 Procedures/MDM This is a very pleasant 24-year-old female that had presented to the emergency department with a significant crush injury to her left index finger and left hand laceration that had been repaired surgically in [facility] several days prior to arrival. The patient had no leukocytosis and no severe N abnormality. IV access was established and the patient was given IV analgesic medication. Blood cultures were obtained and the patient was started prophylactically on IV Zosyn for suspected postoperative infection of the left hand. The hand surgeon Dr. Helms was consulted and she immediately came to the bedside and spoke with the patient. The patient was explained the risks and benefits of the procedure indicating that the patient will require immediate surgical intervention with likely left index ray amputation and irrigation of the subcutaneous tissue including both the muscle and the bone. The patient did provide a written consent. Patient's parents were at bedside. Will be admitted to the hospitalist in serious condition and the patient was sent to the operating room at 4:30 PM. Critical Care: Time: 100 minutes Treatments/Evaluations: Close monitoring and treatment of unstable vital signs, cardiorespiratory, and neurologic status, while maintaining tight balance of fluid, respiratory, and cardiac interventions. Time does not include performing any of the above billable procedures. Departure Diagnosis: Primary Impression: Crushing injury of left index finger Encounter type: initial encounter Qualified Codes: S67.191A - Crushing injury of left index finger, initial encounter Condition: Serious Patient Instructions: Finger Tip Amputation, Open Treatment UZMA JIMENEZ MD Feb 19, 2019 19:55
== END 2019-02-19 11:20 | disposition home or self-care (01) | DRG 906 ==
LOC: FTE 09:44 → TEL 14:27 → REC 16:39 → MS1 20:03
PROVIDERS: ADMIT Internal Medicine; ATTEND Internal Medicine
PROC: 0PPV04Z Removal of Internal Fixation Device from Left Finger Phalanx, Open Approach (ICD-10-PCS; 2019-02-18)
PROC: 0X6P0Z3 Detachment at Left Index Finger, Low, Open Approach (ICD-10-PCS; principal; 2019-02-18 16:30)
DX: L76.82 Other postprocedural complications of skin and subcutaneous tissue (principal); I96 Gangrene, not elsewhere classified
CPT/HCPCS: 80053; 81025; 83036; 83735; 84443; 84703; 85025; 85610; 85730; 86850; 86900; 86901; 88305; 88311; 96374; 96375; 96376; J0690; J1100; J1170; J2175; J2250; J2405; J2543; J2795; J3010; J7030